=== PATIENT | female | born 1960 | race Caucasian/White ===

== ENCOUNTER 2024-09-12 15:22 | Emergency (ER) | payer OTHER ==
[~2024-09-12] VITALS: Ht 165.1 cm; Wt 59.9 kg
[2024-09-12] VITALS (14 sets, daily range): BP systolic 137–158; BP diastolic 59–74
[2024-09-12] MEDS ORDERED: EPINEPHrine HCL 1 MG/ML AMP IM STA (15:32)
[2024-09-12] MEDS ORDERED: methylPREDNISolone SODIUM SUCC 125 MG/2 ML SDV IV ONE (15:40)
[2024-09-12 15:46] LABS: BASO% 0.1 % (0-3); HEMATOCRIT 38.2 % (37.0-47.0); HEMOGLOBIN 12.6 g/dl (12.0-16.0); IMMATURE GRANULOCYTES 0.6 % (0.0-5.0); LYMPH% 13.8 % (15-41); MEAN CELL VOLUME 94.6 fL CALC (80.0-100.0); MEAN CORPUSCULAR HGB 31.2 pG CALC (26.0-32.0); MONO% 3.2 % (2-13); NEUT# 10.18 thou/uL (2.00-7.15); NEUT% 82.3 % (42-76); RED BLOOD COUNT 4.04 mill/uL (4.20-5.60); RED CELL DISTRI WIDTH 13.3 % (11.5-15.5)
[2024-09-12 15:57] LABS: ALBUMIN 3.8 g/dL (3.2-5.0); BILIRUBIN, TOTAL 0.7 mg/dL (0.02-1.3); CREATININE 0.9 mg/dL (0.5-1.0); POTASSIUM 3.4 mmol/l (3.5-5.1); TOTAL PROTEIN 6.3 g/dL (6.3-8.2)
[2024-09-12 16:39] LABS: PROTHROMBIN TIME 10.3 SECONDS (9.0-12.5)
[2024-09-12] MEDS ORDERED: PREDNISONE20 MG PO (19:33)
[2024-09-12] MEDS ORDERED: predniSONE 20 MG/TAB PO ONE (19:35)
== END 2024-09-12 19:55 | disposition home or self-care (01) | DRG 916 ==
LOC: ED 15:22
PROVIDERS: Family Medicine
DX: T78.40XA Allergy, unspecified, initial encounter (principal); R22.1 Localized swelling, mass and lump, neck; R20.0 Anesthesia of skin; R42 Dizziness and giddiness; I10 Essential (primary) hypertension; X58.XXXA Exposure to other specified factors, initial encounter; R26.89 Other abnormalities of gait and mobility